=== PATIENT | male | born 1980 | race Caucasian/White ===

== ENCOUNTER 2020-07-02 13:50 | Emergency (ER) | payer OTHER, MEDICAID ==
[~2020-07-02] VITALS: Ht 172.7 cm; Wt 220.0 kg
[2020-07-02] MEDS ORDERED: methylPREDNISolone SOD SUCC PF 125 MG/2 ML VIAL. IV ONE (14:15)
--- NOTE | 2020-07-02 14:32 | PHYS DOC ---
Past Medical History Past Medical History: Asthma, High Cholesterol, Other Additional Past Medical Histor: DEVELOPMENTALLY DELAYED Past Surgical History: No Surgical History Smoking Status: Never Smoker Alcohol Use: None General Adult EDM: Chief Complaint: SHORTNESS OF BREATH HPI: HPI: Patient is a 39 year old mentally challenged man with history of asthma, high cholesterol, obesity, who presents to the ED today to be evaluated for cough and shortness of breath that is been going on for 1 week. Patient's mother is doing most of the talking, she reports patient was seen by the PCP last week for the same symptoms including a fever. She states patient was given medicine for bronchitis which they do not remember the names but included an antibiotic. She states patient has been taking the medicines but his symptoms have not been improving, patient went to see the PCP today and his oxygen saturation was noted at 90% on room air and was sent to the emergency room to be evaluated. Patient himself is a poor historian Review of Systems: Review of Systems: Constitutional: Reports fever Eyes: Denies change in visual acuity. [] HENT: Denies nasal congestion or sore throat. [] Respiratory: Reports cough and shortness of breath Cardiovascular: Denies chest pain or edema. [] GI: Denies abdominal pain, nausea, vomiting, bloody stools or diarrhea. [] : Denies dysuria. [] Musculoskeletal: Denies back pain or joint pain. [] Integument: Denies rash. [] Neurologic: Denies headache, focal weakness or sensory changes. [] Psychiatric: Denies depression or anxiety. [] Heart Score: Risk Factors: Risk Factors: DM, Current or recent (<one month) smoker, HTN, HLP, family history of CAD, obesity. Risk Scores: Score 0 - 3: 2.5% MACE over next 6 weeks - Discharge Home Score 4 - 6: 20.3% MACE over next 6 weeks - Admit for Clinical Observation Score 7 - 10: 72.7% MACE over next 6 weeks - Early Invasive Strategies Current Medications: Current Medications Medications (Trade) Dose Ordered Sig/Georgie Start Time Stop Time Status Last Admin Dose Admin Methylprednisolone Sodium Succinate (SOLU-Medrol 125MG VIAL) 125 mg 1X ONCE 07/02/20 14:15 07/02/20 14:16 DC Allergies: Allergies: Allergies Coded Allergies Type Severity Reaction Last Updated Verified No Known Drug Allergies 07/02/20 No Physical Exam: PE: Constitutional: Morbidly obese patient. No acute distress, non-toxic appearance. [] HENT: Normocephalic, atraumatic, bilateral external ears normal, oropharynx moist, no oral exudates, nose normal. [] Eyes: PERRLA, EOMI, conjunctiva normal, no discharge. [] Neck: Normal range of motion, no tenderness, supple, no stridor. [] Cardiovascular:Heart rate regular rhythm, no murmur [] Lungs & Thorax: Diminished breath sounds throughout Abdomen: Bowel sounds normal, soft, no tenderness, no masses, no pulsatile masses. [] Skin: Warm, dry, no erythema, no rash. [] Back: No tenderness, no CVA tenderness. [] Extremities: No tenderness, no cyanosis, no clubbing, ROM intact, no edema. [] Neurologic: Alert and oriented X 3, normal motor function, normal sensory function, no focal deficits noted. [] Psychologic: Affect normal, judgement normal, mood normal. [] Current Patient Data: Vital Signs: Vital Signs Date Time Temp Pulse Resp B/P (MAP) Pulse Ox O2 Delivery O2 Flow Rate FiO2 07/02/20 14:07 98.7 134 24 141/94 (110) 94 Room Air 98.7 EKG: EKG: [] Radiology/Procedures: Radiology/Procedures: []PROCEDURE: PORTABLE CHEST 1V PORTABLE CHEST 1V History: Reason: SOA / Spl. Instructions: / History: Comparison: August 24, 2007 Findings: Multifocal ill-defined in patchy opacities. No pleural effusion. No pneumothorax. Low lung volumes. Normal heart size. Impression: 1. Multifocal ill-defined patchy opacities bilaterally, concerning for pneumonia including viral pneumonia. Electronically signed by: Sarbjit Vinson DO (07/02/2020 2:55 PM) [id number] DICTATED and SIGNED BY: SARBJIT VINSON DO DATE: 07/02/20 1455 Course & Med Decision Making: Course & Med Decision Making Pertinent Labs and Imaging studies reviewed. (See chart for details) This is a 39-year-old male patient with developmental delay, morbidly obese, history of asthma presenting to the ED today with cough, shortness of breath, fever for 1 week. Patient was at the PCPs office and his O2 was at 90% on room air. Patient arrives in the ED with O2 sats of 94% on room air. COVID19 test was obtained. CBC with a normal WBC, CMP with K of 2.9 given oral K replacement, lactic 2.6. Chest x-ray shows double viral pneumonia. I went to talk to patient and mother, patient is mentally challenged, informed patient as well as mother he will be admitted. Patient started crying again stating he is not staying in the hospital he is to go home. Mother requested we give patient antibiotics and send him home with antibiotics but she states maki nugent cannot stay in the hospital if he does not want to. I explained the dangers of going home including especially from hypoxia and pneumonia. Mother states she is the DPOA and understands the risk but cannot allow patient to be in the hospital if he does not want to. Patient will be discharged at home with antibiotics. COVID19 testing results will be provided to mother when available. Informed mother to bring patient back to the ED at any point symptoms worsen. Dragon Disclaimer: Dragon Disclaimer: This electronic medical record was generated, in whole or in part, using a voice recognition dictation system. Departure Departure Impression: Primary Impression: Person under investigation for COVID-19 Additional Impressions: Fever Qualified Codes: R50.9 - Fever, unspecified Viral pneumonia Hypokalemia Disposition: 01 HOME, SELF-CARE Condition: STABLE Referrals: MASHA MOHAMUD MD (PCP) follow up tomorrow Patient Instructions: Fever, Adult, Pneumonia, Adult Additional Instructions: You were evaluated in the emergency room and you are noted to have a double viral pneumonia. You were tested for COVID19, we will call your mother in 3 to 7 days with results, in the meantime you need to quarantine yourself until you get results from us. Maintain good and hygiene. Push fluids. Use the prescribed medications as ordered. Please return to the emergency room at any point symptoms worsen. Scripts Zinc (ZINC) 50 Mg Tablet 1 TAB PO DAILY for 10 Days, #10 TAB 0 Refills Prov: MUTUNGA,FABIENNE ISSUER 10/5/20 Cholecalciferol (Vitamin D3) (Vitamin D3) 50 Mcg Tablet 50 MCG PO DAILY, #10 TAB Prov: MUTUNGA,FABIENNE ISSUER 10/5/20 Ascorbic Acid (ASCORBIC ACID) 500 Mg Tablet 500 MG PO DAILY, #10 TAB Prov: MUTUNGA,FABIENNE ISSUER 10/5/20 Potassium Chloride (POTASSIUM CHLORIDE ) 20 Meq Tablet.er 20 MEQ PO DAILY for SUPPLEMENT, #5 TAB.SR Prov: FABIENNE HALE APRN 07/02/20 Prednisone (PREDNISONE) 50 Mg Tablet 1 TAB PO DAILY, #5 TAB Prov: FABIENNE HALE APRN 07/02/20 Azithromycin (AZITHROMYCIN TABLET) 250 Mg Tablet 1 PKG PO UD for 5 Days, #6 TAB 0 Refills start tomorrow. 2 the first day followed by 1 for days 2-5 Prov: FABIENNE HALE APRN 07/02/20 FABIENNE HALE APRN Jul 02, 2020 14:31
--- NOTE | 2020-07-02 14:57 | RAD ---
PORTABLE CHEST 1V History: Reason: SOA / Spl. Instructions: / History: Comparison: August 24, 2007 Findings: Multifocal ill-defined in patchy opacities. No pleural effusion. No pneumothorax. Low lung volumes. Normal heart size. Impression: 1. Multifocal ill-defined patchy opacities bilaterally, concerning for pneumonia including viral pneumonia. Electronically signed by: Sarbjit Vinson DO (07/02/2020 2:55 PM) [id number]
[2020-07-02 15:07] LABS: BASO # 0.1 x10^3/uL (0.0-0.2); BASO % 1 % (0-3); EOS # 0.2 x10^3/uL (0.0-0.7); EOS % 2 % (0-3); HEMATOCRIT 39.5 % (39.0-53.0); HEMOGLOBIN 13.8 g/dL (13.0-17.5); LYMPH # 1.3 x10^3/uL (1.0-4.8); LYMPH % 14 % (24-48); MEAN CORPUSCULAR HEMOGLOBIN 28 pg (25-35); MEAN CORPUSCULAR HGB CONC 35 g/dL (31-37); MEAN CORPUSCULAR VOLUME 80 fL (79-100); MONO # 0.9 x10^3/uL (0.0-1.1); MONO % 10 % (0-9); NEUT # 6.7 x10^3/uL (1.8-7.7); NEUT % 73 % (31-73); PLATELET COUNT 702 x10^3/uL (140-400); RED BLOOD COUNT 4.94 x10^6/uL (4.30-5.70); WHITE BLOOD COUNT 9.1 x10^3/uL (4.0-11.0)
[2020-07-02] MEDS ORDERED: AZITHRMYCN 500MG IVPB FOR OMNI 250 ML IV ONE (15:15)
[2020-07-02] MEDS ORDERED: cefTRIAXone IV Push 1 GM VIAL. IVP ONE (15:15)
[2020-07-02 15:24] LABS: PROTHROMBIN TIME PATIENT 13.9 SEC (11.7-14.0)
[2020-07-02 15:33] LABS: ALBUMIN 3.1 g/dL (3.4-5.0); ALBUMIN/GLOBULIN RATIO 0.6 (1.0-1.7); C-REACTIVE PROTEIN 85.6 mg/L (0-3.3); CALCIUM 8.8 mg/dL (8.5-10.1); CREATININE 1.2 mg/dL (0.7-1.3); GFR 68.1; TOTAL PROTEIN 8.3 g/dL (6.4-8.2)
[2020-07-02 15:41] LABS: POTASSIUM 2.9 mmol/L (3.5-5.1)
[2020-07-02] MEDS ORDERED: AZIT250T6 PO (15:44)
[2020-07-02] MEDS ORDERED: PRED50TA PO (15:44)
[2020-07-02] MEDS ORDERED: CHOL200027 PO (15:44)
[2020-07-02] MEDS ORDERED: POTA20TA4 PO (15:44)
[2020-07-02] MEDS ORDERED: ASCO500T3 PO (15:44)
[2020-07-02] MEDS ORDERED: ZINC50TA39 PO (15:53)
[2020-07-02] MEDS ORDERED: POTASSIUM CHLORIDE 20 MEQ TABLET.ER. PO ONE (16:00)
[2020-07-02 16:41] VITALS: BP 153/73
[2020-07-02 17:39] LABS: % BANDS 1 % (0-9); % LYMPHS 15 % (24-48); % MONOS 7 % (0-10); % SEGS 77 % (35-66)
[2020-07-02 17:40] LABS: PLT ESTIMATE INCREASED (ADEQUATE)
--- NOTE | 2020-07-03 14:09 | NUR ---
IP: Notified mother, DPOA for Dong, that COVID test is + and they needed to quarantine for 14 days. She verbalized understanding.
== END 2020-07-02 17:50 | disposition home or self-care (01) ==
LOC: ER 13:50
DX: U07.1 COVID-19 (principal); J12.89 Other viral pneumonia; E87.6 Hypokalemia; E66.01 Morbid (severe) obesity due to excess calories; Z68.45 Body mass index [BMI] 70 or greater, adult; J45.909 Unspecified asthma, uncomplicated; E78.00 Pure hypercholesterolemia, unspecified
CPT/HCPCS: 36415; 71045; 80053; 82553; 82728; 83605; 84145; 85007; 85025; 85610; 85730; 86140; 87040; 96365; 96375; 99284; C9803; J0456; J0696; J2930; U0003; 99285